=== PATIENT | male | born 1960 | race Caucasian/White ===

== ENCOUNTER → 2017-02-20 | Outpatient (CLI) | payer BC, OTHER ==
[~2017-02-20] MED LIST: CLEOCIN PO; DIAMOX SEQUELS500 MG PO; DIOVAN HCT 160/1 TAB PO; FLEXERIL10 MG PO; LORTAB 7.51 TAB 7.5/ DOB; NAPROSYN-EC500 MG DOB; PREVACID PO; VICODIN 5/500 T1 TAB PO; VYTORIN PO
--- NOTE | ~2017-02-20 | TH ---
Unit #: [id number] #: [id number] Patient: CAROL MENA [id number] [address] [address] [id number] O MR#: [id number] NAME: CAROL MENA : 1960 SEX: M STUDY DATE/TIME: 02/20/2017 UNIT: [facility] ROOM: STUDY DESCRIPTION: Attending Physician: Mookie George M.D. Referring Physician: Mookie George M.D. Primary Care Physician: Amber Schuster M.D. CARDIOLOGY REPORT EXAM Exercise Cardiolite stress test, nuclear portion. PROCEDURE Using technetium 99m labeled Cardiolite, rest and stress SPECT images were obtained. Multiple SPECT images were obtained in various views including horizontal and vertical long axis and short axis views of the left ventricle. Images were obtained by gated SPECT method. The patient was administered 9.94 mCi of Cardiolite at rest. The patient was administered 32.5 mCi of Cardiolite at peak exercise. Total exercise time is 10 minutes. On the stress images, there is normal perfusion noted. The rest images show normal perfusion. Comparing rest and stress images, there is no stress-induced ischemia noted. The left ventricular ejection fraction is calculated to be 64%. There is no focal wall motion abnormality seen. CONCLUSION 1. No stress-induced ischemia noted. 2. The left ventricular ejection fraction is calculated to be 64%. 3. There is no focal wall motion abnormality seen. 4. Normal exercise Cardiolite stress test. Dictated by... Alex Lewis TD: 02/20/2017 16:14 JOB #: [id number] CARDIOLOGY REPORT Page 1 of 1 X Anni Laird MD <ELECTRONICALLY SIGNED> 04/08/17 1429 CARDIOLOGY REPORT
--- NOTE | ~2017-02-20 | ST ---
Unit #: [id number] #: [id number] Patient: CAROL MENA [id number] [address] [address] [id number] O MR#: [id number] NAME: CAROL MENA : 1960 SEX: M STUDY DATE/TIME: 02/20/2017 UNIT: [facility] ROOM: STUDY DESCRIPTION: Stress EKG Attending Physician: Mookie George M.D. Referring Physician: Mookie George M.D. Primary Care Physician: Amber Schuster M.D. CARDIOLOGY REPORT EXAM EKG portion of an exercise Cardiolite stress test. REASON FOR EXAMINATION Shortness of breath. FINDINGS Baseline EKG shows sinus rhythm at a rate of 52 beats per minute and PVCs. The patient exercised on the treadmill according to Bryson protocol for a total of 10 minutes and 1 second achieving a work level of 11.70 METs. Patient's resting heart rate was 69, maximal heart rate was 151 beats per minute representing 93% of the maximal age predicted heart rate. The patient's symptoms were shortness of breath. No arrhythmias were noted. The test was stopped due to achieving heart rate. IMPRESSION 1. Patient was asymptomatic. 2. No arrhythmias. 3. Please correlate with Cardiolite imaging. Dictated by... Ronna Grossman M.D. AM/césar TD: 02/21/2017 09:23 JOB #: [id number] CARDIOLOGY REPORT Page 1 of 1 X Mickie Garcia APRN CARDIOLOGY REPORT
== END | disposition home or self-care (01) ==
LOC: CNUC 08:18
DX: R06.02 Shortness of breath (principal); I10 Essential (primary) hypertension
CPT/HCPCS: 78452; 93017; A9500